=== PATIENT | female | born 1980 | race African-American/Black ===

== ENCOUNTER 2019-06-07 18:18 | Emergency (ER) | payer SELFPAY ==
[2019-06-07] MEDS ORDERED: Cyclobenzaprine 10 MG TAB ONE (19:23)
[2019-06-07] MEDS ORDERED: Ibuprofen 200 MG TAB ONE (19:23)
== END 2019-06-07 20:31 | disposition home or self-care (01) ==
LOC: ERS 18:18
DX: S16.1XXA Strain of muscle, fascia and tendon at neck level, initial encounter (principal); E11.65 Type 2 diabetes mellitus with hyperglycemia; E11.9 Type 2 diabetes mellitus without complications; V43.62XA Car passenger injured in collision with other type car in traffic accident, initial encounter
CPT/HCPCS: 36416; 99283

== ENCOUNTER 2020-05-29 12:17 | Emergency (ER) | payer BC, OTHER ==
[2020-05-30 15:23] LABS: SARS-CoV-2 MS2 Positive; SARS-CoV-2 N Gene Negative; SARS-CoV-2 S Gene Negative; SARS-CoV-2 orf1ab Negative
== END 2020-05-29 12:55 | disposition home or self-care (01) ==
LOC: ERS 12:17
DX: R05 Cough (principal); R11.0 Nausea; Z20.828 Contact with and (suspected) exposure to other viral communicable diseases; E11.9 Type 2 diabetes mellitus without complications
CPT/HCPCS: 87635; 99283; U0003

== ENCOUNTER 2023-06-08 23:27 | Inpatient (IN) | payer BC, SELFPAY ==
[2023-06-09 00:06] LABS: #Eosinphils 0.1 thou/uL (0.0-0.7); #Monocytes 0.6 thou/uL (0.11-0.59); #Neutrophils 4.4 thou/uL (1.40-6.50); %Basophils 0.3 % (0.0-1.0); %Eosinophils 1.6 % (0.0-10.0); %Lymphocytes 33.3 % (21.0-51.0); %Monocytes 7.7 % (0.0-10.0); %Neutrophils 56.7 % (42.0-75.0); Mean Corpuscular HGB CONC 33.4 g/dL (32.0-36.0); Mean Corpuscular Hemoglobin 30.1 pg (27.0-31.0); Mean Platelet Volume 10.6 fL (7.4-10.4); Platelet Count 341 10x3/uL (130-400); RBC Distribution Width 12.6 % (11.5-14.5); Red Blood Cell (RBC) Count 4.32 mill/uL (4.20-5.40); White Blood Cell (WBC) Count 7.7 10x3/uL (4.8-10.8)
[2023-06-09 01:54] LABS: Actual Bicarbonate (HCO3v) 20.4 mEq/L (22-28); Analyzer IN Cardio ER; Base Excess -5.5 mEq/L (-2.0 to +3.0); Calcium, Ionized (venous) 1.03 mmol/L (1.16-1.32); Chloride (VBG) 103 mmol/L (98-106); Hematocrit-VBG 39 % (36.0-47.0); Hemoglobin (Hb) 13.2 g/dL (11.7-15.5); Potassium (VBG) 3.57 mmol/L (3.70-5.30); Sodium 135.1 mmol/L (133-146); pH (venous) 7.315 (7.32-7.43)
[2023-06-09 01:55] LABS: ALT (SGPT) 15 U/L (8-55); AST (SGOT) 14 U/L (5-34); Albumin 4.2 g/dL (3.5-5.0); Alkaline Phosphatase 56 U/L (40-110); Anion Gap 22 mmol/L (10-20); BUN (Urea Nitrogen) 14 mg/dL (7.0-18.7); Bilirubin, Total 0.3 mg/dL (0.2-1.2); Calc. Creatinine Clearance 0 mL/min (70-130); Calcium 9.2 mg/dL (7.8-10.44); Carbon Dioxide 17 mmol/L (22-29); Chloride 98 mmol/L (98-107); Estimated GFR 71; Globulin 3.4 g/dL (2.4-3.5); Potassium 3.5 mmol/L (3.5-5.1); Protein, Total 7.6 g/dL (6.0-8.3); Sodium 133 mmol/L (136-145)
[2023-06-09 02:00] LABS: CK (CPK) 173 U/L (29-168); Lipase 68 U/L (8-78); Magnesium 1.4 mg/dL (1.6-2.6)
[2023-06-09 02:03] LABS: Glucose 442 mg/dL (70-105)
[2023-06-09] MEDS ORDERED: INSULIN REGULAR IN 0.9 % NACL 100 UNITS/100 ML BAG ONE (02:53)
[2023-06-09] MEDS ORDERED: NS 0.9% w/ 20 MEQ KCL 1,000 ML ONE (02:53)
[2023-06-09] MEDS ORDERED: Magnesium 2 GM/50 ML BAG (IN WATER) ONE (02:53)
[2023-06-09] MEDS ORDERED: NS 0.9% w/ 20 MEQ KCL 1,000 ML IV PRN ×2 (04:25)
[2023-06-09] MEDS ORDERED: Dextrose 50% Abboject 50 ML SYRINGE SLOW IVP PRN (04:25)
[2023-06-09] MEDS ORDERED: Dextrose 5 %-0.45 % NaCl 1,000 ML IV PRN (04:25)
[2023-06-09] MEDS ORDERED: Electrolyte Replacement Protocol 1 EACH IVPB PRN (04:25)
[2023-06-09] MEDS ORDERED: D5 1/2 NS w/20 mEq KCL 1,000 ML IV PRN (04:25)
[2023-06-09] MEDS ORDERED: Sodium Chloride 0.9% 1,000 ML IV PRN ×4 (04:25)
[2023-06-09] MEDS ORDERED: Acetaminophen 325 MG TAB PO PRN (04:27)
[2023-06-09] MEDS ORDERED: Calcium Carbonate 500 MG ChewTAB PO PRN (04:27)
[2023-06-09] MEDS ORDERED: Ondansetron ODT 4 MG TAB PO PRN (04:27)
[2023-06-09] MEDS ORDERED: Senokot S 8.6-50 MG TAB PO PRN (04:27)
[2023-06-09] MEDS ORDERED: HUMULIN R 100 UNITS in Sodium Chloride 0.9% 100 ML IVPB SCH (04:30)
[2023-06-09 04:44] LABS: Anion Gap 15 mmol/L (10-20); BUN (Urea Nitrogen) 11 mg/dL (7.0-18.7); Calc. Creatinine Clearance 0 mL/min (70-130); Calcium 8.3 mg/dL (7.8-10.44); Carbon Dioxide 21 mmol/L (22-29); Chloride 105 mmol/L (98-107); Estimated GFR 93; Glucose 303 mg/dL (70-105); Potassium 3.6 mmol/L (3.5-5.1); Sodium 137 mmol/L (136-145)
[2023-06-09 07:10] VITALS: BMI 29.9
[2023-06-09 08:38] LABS: Hemoglobin A1c 12.3 % (4.0-6.0)
[2023-06-09 08:52] LABS: Anion Gap 10 mmol/L (10-20); BUN (Urea Nitrogen) 12 mg/dL (7.0-18.7); Calc. Creatinine Clearance 121 mL/min (70-130); Calcium 8.3 mg/dL (7.8-10.44); Carbon Dioxide 25 mmol/L (22-29); Chloride 105 mmol/L (98-107); Estimated GFR 93; Glucose 285 mg/dL (70-105); Potassium 3.9 mmol/L (3.5-5.1); Sodium 136 mmol/L (136-145)
[2023-06-09] MEDS: Famotidine 20 MG TAB PO SCH ×2 (09:02→20:52)
[2023-06-09 12:54] LABS: Anion Gap 11 mmol/L (10-20); BUN (Urea Nitrogen) 10 mg/dL (7.0-18.7); Calc. Creatinine Clearance 126 mL/min (70-130); Calcium 8.2 mg/dL (7.8-10.44); Carbon Dioxide 23 mmol/L (22-29); Chloride 105 mmol/L (98-107); Estimated GFR 98; Glucose 228 mg/dL (70-105); Potassium 3.9 mmol/L (3.5-5.1); Sodium 135 mmol/L (136-145)
[2023-06-09] MEDS ORDERED: Dextrose 5% in Water 1,000 ML IV PRN (14:00)
[2023-06-09] MEDS ORDERED: Insulin Glargine 30 UNITS/0.3 ML VIAL SC SCH (14:00)
[2023-06-09] MEDS ORDERED: Dextrose 50% Abboject 50 ML SYRINGE IVP PRN (14:00)
[2023-06-09] MEDS ORDERED: Glucagon 1 MG/ML KIT IM PRN (14:00)
[2023-06-09] MEDS: Sodium Chloride 0.9% 1,000 ML IV SCH ×2 (14:12→20:49)
[2023-06-09] MEDS: HumaLOG 300 UNITS/3 ML VIAL SC PRN (20:51)
[2023-06-10] MEDS: HumaLOG 300 UNITS/3 ML VIAL SC PRN ×2 (00:36→11:49)
[2023-06-10] MEDS: Sodium Chloride 0.9% 1,000 ML IV SCH ×2 (03:20→12:09)
[2023-06-10 06:55] LABS: Anion Gap 11 mmol/L (10-20); BUN (Urea Nitrogen) 13 mg/dL (7.0-18.7); Calc. Creatinine Clearance 120 mL/min (70-130); Calcium 7.9 mg/dL (7.8-10.44); Carbon Dioxide 21 mmol/L (22-29); Chloride 107 mmol/L (98-107); Estimated GFR 92; Glucose 196 mg/dL (70-105); Potassium 3.9 mmol/L (3.5-5.1); Sodium 135 mmol/L (136-145)
[2023-06-10 07:50] VITALS: BP 115/68; TEMP 98.4
[2023-06-10] MEDS ORDERED: Lorazepam 2 MG/ML VIAL IM PRN (08:06)
[2023-06-10] MEDS ORDERED: Lorazepam 1 MG TAB PO PRN (08:06)
[2023-06-10] MEDS ORDERED: Electrolyte Replacement Protocol 1 EACH FS SCH (08:15)
[2023-06-10] MEDS ORDERED: Electrolyte Replacement Protocol FS PRN (08:30)
[2023-06-10] MEDS: Famotidine 20 MG TAB PO SCH (08:45)
[2023-06-10] MEDS ORDERED: Thiamine HCl 200 MG/2 ML VIAL SLOW IVP SCH (09:00)
[2023-06-10] MEDS ORDERED: Multivit, Therapeutic 1 TAB PO SCH (09:00)
[2023-06-10] MEDS ORDERED: Folic Acid 1 MG TAB PO SCH (09:00)
[2023-06-10] MEDS ORDERED: Insulin Glargine 30 UNITS/0.3 ML VIAL SC SCH (21:00)
[2023-06-11] MEDS ORDERED: Lorazepam 1 MG TAB PO PRN (08:07)
[2023-06-12] MEDS ORDERED: Lorazepam 1 MG TAB PO PRN (08:07)
[2023-06-13] MEDS ORDERED: Lorazepam 0.5 MG TAB PO PRN (08:07)
[2023-06-13] MEDS ORDERED: Thiamine 100 MG TAB PO SCH (09:00)
== END 2023-06-10 12:10 | disposition home or self-care (01) | DRG 638 ==
LOC: ERS 23:27 → T4-A 06-09 04:25
PROVIDERS: ADMIT Student in an Organized Health Care Education/Training Program; ATTEND Physician Assistant
PROC: 4A043R1 Measurement of Venous Saturation, Peripheral, Percutaneous Approach (ICD-10-PCS; principal; 2023-06-09)
DX: E11.65 Type 2 diabetes mellitus with hyperglycemia (principal); E87.20 Acidosis, unspecified; E83.42 Hypomagnesemia; F10.90 Alcohol use, unspecified, uncomplicated; Z79.4 Long term (current) use of insulin
CPT/HCPCS: 36415; 36416; 71045; 80048; 80053; 82010; 82550; 82805; 83036; 83690; 83735; 84484; 85025; 93005; 96365; 96366; J1815; J3411; J3475; J3480; J7030; J7042; J7050